=== PATIENT | male | born 1955 | race Caucasian/White ===

== ENCOUNTER 2017-12-03 06:37 | Inpatient (IN) | payer MEDICARE, MEDICAID ==
[2017-12-03 08:14] LABS: INR 1.66 (0.5-1.4); PROTHROMBIN TIME (TEST) 17.8 SECONDS (9.5-11.5)
[2017-12-03 08:18] LABS: ALB/GLOB RATIO 0.7 (1.0-1.8); ALBUMIN 2.8 gm/dL (4.2-5.5); ALKALINE PHOSPHATASE 117 U/L (34-104); ANION GAP 15.6 (7.0-16.0); BILIRUBIN,TOTAL 8.7 mg/dL (0.3-1.0); BUN - UREA NITROGEN 18 mg/dL (7-25); CALCIUM SERUM 8.7 mg/dL (8.6-10.3); CHLORIDE 105 mEq/L (98-107); CHOLESTEROL 46 mg/dL (<200); CREATININE - SERUM 1.3 mg/dL (0.7-1.3); CREATININE KINASE 1584 U/L (30-223); GFR AFRICAN-AMERICAN > 60.0 ml/min (>90); GFR NON AFRICAN-AMERICAN 59.3 ml/min; GLUCOSE 167 mg/dL (70-105); HDL -HIGH DENSITY LIPOPROTEIN 24 mg/dL (23-92); POTASSIUM SERUM 3.6 mEq/L (3.5-5.1); SGOT 109 U/L (13-39); SGPT/ALT 38 U/L (7-52); SODIUM SERUM 136 mEq/L (136-145); TOTAL PROTEIN,SERUM 6.9 gm/dL (6.0-8.3); TRIGLYCERIDES 44 mg/dL (<150)
--- NOTE | 2017-12-03 08:27 | Diagnostic Imaging Report ---
CHEST X-RAY: AP view INDICATION: pain COMPARISON: None FINDINGS: Increased interstitial lung markings are noted. No focal consolidation or effusions. Heart size is normal. No evidence of pneumothorax. The osseous structures are intact. IMPRESSION: Increased initial lung markings, nonspecific. No focal consolidation identified.
[2017-12-03 08:29] LABS: HEMATOCRIT 35.8 % (41.0-60); HEMOGLOBIN 12.6 gm/dL (12-16); MEAN CELL VOLUME 99.1 fl (80-99); MEAN CORPUSCULAR HEMOGLOBIN 34.8 pg (26.0-30.0); MEAN CORPUSCULAR HGB CONC 35.1 pg (28.0-36.0); MEAN PLATELET VOLUME 8.3 fl; PLATELET COUNT 54 Th/cmm (150-400); RED BLOOD COUNT 3.62 Mil/cmm (4.30-5.70); RED CELL DISTRIBUTION WIDTH 14.6 % (11.5-20.0); WHITE BLOOD COUNT 10.3 Th/cmm (4.8-10.8)
[2017-12-03 08:32] LABS: MANUAL DIFF REQUIRED? YES
[2017-12-03 09:01] LABS: BAND NEUTROPHILE 3 % (0-10); BASOPHIL 0 % (0-3); EOSINOPHIL 0 % (0-5); LYMPHOCYTE 6 % (20-50); MONOCYTE 4 % (2-10); NEUTROPHILS 87 % (40-80); PLATELET ESTIMATE DECREASED PLATELETS (NORMAL); TOTAL CELLS COUNTED 100
--- NOTE | 2017-12-03 09:12 | ED Physician Chart ---
ED Chief Complaint/HPI - Patient Information Date Seen:: 12/03/17 Time Seen:: 06:45 Chief Complaint:: Fall History of Present Illness:: onset x 3 hours of syncope resulting in a fall resulting in head injury with back pain; pt denies H/As, S/T, neck pain, C/P, SOB, Abd. Pain, A/N/V/D/C, fever , chills, bleeding, or urinary s/s; pt's last tetanus shot: > 5 years Allergies:: Allergies Allergy/AdvReac Type Severity Reaction Status Date / Time No Known Allergies Allergy Verified 12/03/17 06:45 Vitals:: Vital Signs - 8 hr 12/03/17 12/03/17 12/03/17 06:40 07:16 08:46 Temp 98.1 F 98.1 F HR 108 102 99 RR 18 17 16 BP 125/58 125/59 121/58 O2 Sat % 94 93 94 Historian:: Patient, EMS Review:: Nurse's Note Reviewed, Old Chart Reviewed, EMS run form Reviewed ED Review of Systems - Review of Systems General/Constitutional: No fever, No chills, No weight loss, No weakness, No diaphoresis, No edema, No loss of appetite Skin: No skin lesions, No rash, No bruising Head: No headache, No light-headedness Eyes: No loss of vision, No pain, No diplopia ENT: No earache, No nasal drainage, No sore throat, No tinnitus Neck: No neck pain, No swelling, No thyromegaly, No stiffness, No mass noted Cardio Vascular: No chest pain, No palpitations, No PND, No orthopnea, No edema Pulmonary: No SOB, No cough, No sputum, No wheezing GI: No nausea, No vomiting, No diarrhea, No pain, No melena, No hematochezia, No constipation, No hematemesis G/U: No dysuria, No frequency, No hematuria, No nacturia Musculoskeletal: No bone or joint pain, No back pain, No muscle pain Endocrine: No polyuria, No polydipsia Psychiatric: Prior psych history, No depression, No anxiety, No suicidal ideation, No homicidal ideation, Auditory hallucination, No visual hallucination Hematopoietic: No bruising, No lymphadenopathy Allergic/Immuno: No urticaria, No angioedema Neurological: Syncope, No focal symptoms, No weakness, No paresthesia, No headache, No seizure, No dizziness, No confusion, No vertigo ED Past Medical History - Past Medical History Obtainable: Yes Past Medical History: HTN Family History: HTN Social History: Non Smoker, No Alcohol, No Drug Use, Single Surgical History: None Psychiatricy History: Schizophrenia Medication: Reviewed Family Medical History - Family Member Mother History Unknown: Yes ED Physical Exam - Physical Examination General/Constitutional: Awake, Well-developed, well-nourished, Alert, No distress, GCS 15, Non-toxic appearing, Ambulatory Other Head comments:: Left Frontal scalp Contusion and Abrasion; no FBs; good NV functions Eyes: Lids, conjuctiva normal, PERRL, EOMI Skin: Nl inspection, No rash, No skin lesions, No ecchymosis, Well hydrated, No lymphadenopathy ENMT: External ears, nose nl, Nasal exam nl, Lips, teeth, gums nl Neck: Nontender, Full ROM w/o pain, No JVD, No nuchal rigidity, No bruit, No mass, No stridor Other Neck comments:: supple; no meningeal signs; no cervical tenderness; no bruits Respiratory: Nl effort/Exclusion, Clear to Auscultation, No Wheeze/Rhonchi/Rales Cardio Vascular: RRR, No murmur, gallop, rubs, NL S1 S2, Carotid/Femoral/Distal pulses equal bilaterally GI: No tenderness/rebounding/guarding, No organomegaly, No hernia, Normal BS's, Nondistended, No mass/bruits, No McBurney tenderness, Rectum exam nl Other GI comments:: no pulsatile masses : No CVA tenderness Extremities: No tenderness or effusion, Full ROM, normal strength in all extremities, No edema, Normal digits & nails Neuro/Psych: Alert/oriented, DTR's symmetric, Normal sensory exam, Normal motor strength, Judgement/insight normal, Mood normal, Normal gait, No focal deficits Other Neuro/Psych comments:: no focal signs Misc: Normal back, No paraspinal tenderness ED Labs/Radiology/EKG Results - Lab Results Results: Laboratory Tests 12/03/17 12/03/17 12/03/17 07:52 07:52 07:52 WBC 10.3 RBC 3.62 L Hgb 12.6 Hct 35.8 L MCV 99.1 H MCH 34.8 H MCHC Differential 35.1 RDW 14.6 Plt Count 54 L MPV 8.3 Band Neutrophils % 3 Neutrophils (Manual) 87 H Lymphocytes 6 L Monocytes 4 Eosinophils 0 Basophils 0 Platelet Estimate DECREASED PLATELETS PT 17.8 H INR 1.66 H Sodium 136 Potassium 3.6 Chloride 105 Carbon Dioxide 19.0 L Anion Gap 15.6 BUN 18 Creatinine 1.3 Est GFR ( Amer) > 60.0 Est GFR (Non-Af Amer) 59.3 BUN/Creatinine Ratio 13.8 Glucose 167 H Calcium 8.7 Total Bilirubin 8.7 H AST 109 H ALT 38 Alkaline Phosphatase 117 H Creatine Kinase 1584 H CK-MB (CK-2) 13.6 H Troponin I B-Natriuretic Peptide Total Protein 6.9 Albumin 2.8 L Globulin 4.1 Albumin/Globulin Ratio 0.7 L Triglycerides 44 Cholesterol 46 LDL Cholesterol Direct 15 L HDL Cholesterol 24 12/03/17 12/03/17 07:52 07:52 WBC RBC Hgb Hct MCV MCH MCHC Differential RDW Plt Count MPV Band Neutrophils % Neutrophils (Manual) Lymphocytes Monocytes Eosinophils Basophils Platelet Estimate PT INR Sodium Potassium Chloride Carbon Dioxide Anion Gap BUN Creatinine Est GFR ( Amer) Est GFR (Non-Af Amer) BUN/Creatinine Ratio Glucose Calcium Total Bilirubin AST ALT Alkaline Phosphatase Creatine Kinase CK-MB (CK-2) Troponin I 0.06 H B-Natriuretic Peptide 22.4 Total Protein Albumin Globulin Albumin/Globulin Ratio Triglycerides Cholesterol LDL Cholesterol Direct HDL Cholesterol Comments:: decreased Platelets - Radiology Results Comments:: NAD - EKG Interpretations EKG Time:: 07:53 Rate & Rhythm: 103; ST Comments:: non-specific st-t changes ED Septic Shock - . Is Septic Shock (SBP<90, OR Lactate>4 mmol\L) present?: No - <6hrs of presentation: Vital Signs: Vital Signs - 8 hr 12/03/17 12/03/17 12/03/17 06:40 07:16 08:46 Temp 98.1 F 98.1 F HR 108 102 99 RR 18 17 16 BP 125/58 125/59 121/58 O2 Sat % 94 93 94 ED Reassessment (Disposition) - Reassessment Reassessment Condition:: Improved - Diagnosis Diagnosis:: Head Injury; Syncope; S/P Fall; Back Pain; Scalp Contusion and Abrasion; TIA; Cardiac Arrythmias - Aftercare/Follow up Instructions Aftercare/Follow-Up Instructions:: Counseled pt regarding lab results/diagnosis & need follow up, Counseled pt & family regarding lab results/diagnosis & need follow up - Patient Disposition Discharge/Transfer:: Acute Care w/in this hosp Accepting Physician:: Dr. Guido Time Called:: 829 Time Responded:: 08:30 Admitted to:: Telemetry Spoke to:: Dr. Guido Admitting Medical Physician:: Dr. Guido Condition at Disposition:: Stable, Improved
--- NOTE | 2017-12-03 09:28 | Diagnostic Imaging Report ---
Head CT without intravenous contrast Indication: Trauma Comparison: None Technique: Axial images were obtained from the vertex to the skull base without IV contrast. Coronal reconstructions were made. Total DLP: 697, CTDI34 FINDINGS: Images of the brain obtained without contrast demonstrate no acute hemorrhage. No mass lesions identified. The ventricles and basal cisterns are patent. The boyer-white matter differentiation is preserved. There is no mass effect or midline shift. No skull fractures identified. No soft tissue swelling. The paranasal sinuses are clear. IMPRESSION: No acute intracranial abnormality.
--- NOTE | 2017-12-03 09:33 | Diagnostic Imaging Report ---
CT cervical spine without IV contrast HISTORY: Trauma COMPARISON: None Technique: Axial images were obtained from the skull base to the upper thoracic spine without IV contrast. Multiplanar reconstructions were made. Total DLP: 772, CTDI34 FINDINGS: Images of the cervical spine obtained without contrast demonstrate no evidence of acute fracture or subluxation. Spinal scoliosis is noted. Advanced multilevel degenerative changes are seen with multilevel disc space loss of height extending from C4 through C7 with bridging osseous fusion and large posterior disc osteophyte spurs this is largest at the C5/C6 on the left side measuring up to 6-7 mm causing severe left-sided spinal canal and severe left neural foraminal narrowing. Additional 6 to 7 mm asymmetric leftward posterior disc osteophyte complex is seen at C6/C7 causing severe left-sided spinal canal severe left neural foraminal narrowing. An additional smaller disc osteophyte complexes are also noted. Multilevel facet degenerative changes are seen most pronounced on the at C2/C3 on the left side causing moderate to severe left neural foraminal narrowing at this level. Degenerative change of the atlantodental articulation is noted. No prevertebral soft tissue swelling. The lung apices are clear. IMPRESSION: No evidence of acute fracture or subluxation. Moderate to severe multilevel degenerative changes as detailed above. Spinal scoliosis.
--- NOTE | 2017-12-03 09:38 | Diagnostic Imaging Report ---
CT lumbar spine without IV contrast HISTORY: Trauma COMPARISON: None Technique: Axial images were obtained from the lower thoracic spine to the upper sacrum without IV contrast. Reconstructions were made. total DLP: 1289, CTDI46 Findings: Images of the lumbar spine obtained without contrast demonstrate no evidence of an acute fracture or subluxation. Multilevel moderate to advanced degenerative changes are seen with multilevel marginal ossific spurring greatest anteriorly. 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 The visualized retroperitoneum demonstrates a possible horseshoe kidney. The SI joints are preserved. IMPRESSION: No evidence of an acute fracture or subluxation. Degenerative changes. 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 CT abdomen pelvis or ultrasound abdomen may be obtained for further assessment if warranted
[2017-12-03 10:55] VITALS: BP 123/61
[2017-12-03] MEDS ORDERED: INSULIN ASPART SLIDING SCALE 100 UNITS/ML UNIT SUBQ SCH (18:30)
[2017-12-03] MEDS: Sodium Chloride 0.9% 1,000 ML IV SCH (20:07)
[2017-12-03] MEDS: INSULIN ASPART SLIDING SCALE 100 UNITS/ML UNIT SUBQ SCH (21:00)
[2017-12-04 06:31] LABS: % BASOPHILS 0.7 % (0.0-2.0); % EOSINOPHILS 2.6 % (0.0-5.0); % MONOCYTES 10.6 % (2.0-10.0); % NEUTROPHILS 76.1 % (40.0-80.0); EOSINOPHILE ABSOLUTE 0.2 Th/cmm (0.1-0.4); HEMATOCRIT 35.7 % (41.0-60); HEMOGLOBIN 12.3 gm/dL (12-16); LYMPHOCYTE ABSOLUTE 0.7 Th/cmm (1.5-3.0); MEAN CELL VOLUME 99.5 fl (80-99); MEAN CORPUSCULAR HEMOGLOBIN 34.4 pg (26.0-30.0); MEAN CORPUSCULAR HGB CONC 34.6 pg (28.0-36.0); MEAN PLATELET VOLUME 8.2 fl; MONOCYTE ABSOLUTE 0.7 Th/cmm (0.3-1.0); NEUTROPHILE ABSOLUTE 5.2 Th/cmm (1.8-8.0); PLATELET COUNT 46 Th/cmm (150-400); RED BLOOD COUNT 3.58 Mil/cmm (4.30-5.70); RED CELL DISTRIBUTION WIDTH 14.8 % (11.5-20.0); WHITE BLOOD COUNT 6.8 Th/cmm (4.8-10.8)
[2017-12-04 06:38] LABS: ANION GAP 9.1 (7.0-16.0); BUN - UREA NITROGEN 17 mg/dL (7-25); CALCIUM SERUM 8.4 mg/dL (8.6-10.3); CARBON DIOXIDE 22.1 mEq/L (21.0-31.0); CHLORIDE 101 mEq/L (98-107); CREATININE - SERUM 0.9 mg/dL (0.7-1.3); GFR AFRICAN-AMERICAN > 60.0 ml/min (>90); GFR NON AFRICAN-AMERICAN > 60.0 ml/min; GLUCOSE 112 mg/dL (70-105); POTASSIUM SERUM 3.2 mEq/L (3.5-5.1); SODIUM SERUM 129 mEq/L (136-145)
[2017-12-04] MEDS: INSULIN ASPART SLIDING SCALE 100 UNITS/ML UNIT SUBQ SCH ×4 (06:38→21:16)
[2017-12-04] MEDS: Potassium Chloride 20 mEq ER Tab PO SCH (09:10)
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
--- NOTE | 2017-12-04 16:31 | Cardiology ---
12/03/[address] Guido. PROCEDURE: Echocardiogram. M-MODE ECHOCARDIOGRAM: Mitral valve, anterior leaflet of mitral valve shows normal excursion, EF velocity. Posterior leaflet of mitral valve shows normal excursion. Left ventricular posterior wall shows increased thickness, normal excursion. Interventricular septum shows increased thickness, normal excursion, hypertrophy of the left ventricle, ejection fraction 77%. Left atrium enlarged 4.2 cm. Aortic root shows normal dimension, normal excursion of aortic leaflets. CONCLUSION: Hypertrophy of the left ventricle, ejection fraction 77%, left atrial enlargement. 2D ECHO: Long axis view showed normal sized left ventricle with hypertrophy of the left ventricle. Left atrium enlarged. Aortic root shows normal dimension, normal excursion of aortic leaflets. Short axis view of mitral valve normal. Short axis view of aortic valve normal. Apical four chamber view showed normal sized left ventricle with hypertrophy of the left ventricle. Left atrium enlarged. Right ventricular cavity, right atrium normal, no pericardial effusion. CONCLUSION: Hypertrophy of the left ventricle. Left atrial enlargement, ejection fraction 77%. Doppler study shows mild mitral regurgitation, tricuspid regurgitation, pulmonary regurgitation, right ventricular systolic pressure 46 mmHg with mild pulmonary hypertension. JOB# [id number]
[2017-12-05] MEDS: Sodium Chloride 0.9% 1,000 ML IV SCH (04:09)
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
[2017-12-05] MEDS: INSULIN ASPART SLIDING SCALE 100 UNITS/ML UNIT SUBQ SCH ×4 (06:30→21:30)
--- NOTE | 2017-12-05 09:16 | General Progress Note ---
Subjective - Review of Systems Service Date: 12/05/17 Subjective: I want go home Objective - Results Result Diagrams: 12/04/17 05:45 12/04/17 05:45 Recent Labs: Laboratory Last Values WBC 6.8 Th/cmm (4.8-10.8) 12/04/17 05:45 RBC 3.58 Mil/cmm (4.30-5.70) L 12/04/17 05:45 Hgb 12.3 gm/dL (12-16) 12/04/17 05:45 Hct 35.7 % (41.0-60) L 12/04/17 05:45 MCV 99.5 fl (80-99) H 12/04/17 05:45 MCH 34.4 pg (26.0-30.0) H 12/04/17 05:45 MCHC Differential 34.6 pg (28.0-36.0) 12/04/17 05:45 RDW 14.8 % (11.5-20.0) 12/04/17 05:45 Plt Count 46 Th/cmm (150-400) L 12/04/17 05:45 MPV 8.2 fl 12/04/17 05:45 Neutrophils % 76.1 % (40.0-80.0) 12/04/17 05:45 Band Neutrophils % 3 % (0-10) 12/03/17 07:52 Lymphocytes % 10.0 % (20.0-50.0) L 12/04/17 05:45 Monocytes % 10.6 % (2.0-10.0) H 12/04/17 05:45 Eosinophils % 2.6 % (0.0-5.0) 12/04/17 05:45 Basophils % 0.7 % (0.0-2.0) 12/04/17 05:45 Neutrophils (Manual) 87 % (40-80) H 12/03/17 07:52 Lymphocytes 6 % (20-50) L 12/03/17 07:52 Monocytes 4 % (2-10) 12/03/17 07:52 Eosinophils 0 % (0-5) 12/03/17 07:52 Basophils 0 % (0-3) 12/03/17 07:52 Platelet Estimate DECREASED PLATELETS (NORMAL) 12/03/17 07:52 PT 17.8 SECONDS (9.5-11.5) H 12/03/17 07:52 INR 1.66 (0.5-1.4) H 12/03/17 07:52 Sodium 129 mEq/L (136-145) L 12/04/17 05:45 Potassium 3.2 mEq/L (3.5-5.1) L 12/04/17 05:45 Chloride 101 mEq/L (98-107) 12/04/17 05:45 Carbon Dioxide 22.1 mEq/L (21.0-31.0) 12/04/17 05:45 Anion Gap 9.1 (7.0-16.0) 12/04/17 05:45 BUN 17 mg/dL (7-25) 12/04/17 05:45 Creatinine 0.9 mg/dL (0.7-1.3) 12/04/17 05:45 Est GFR ( Amer) > 60.0 ml/min (>90) 12/04/17 05:45 Est GFR (Non-Af Amer) > 60.0 ml/min 12/04/17 05:45 BUN/Creatinine Ratio 18.9 12/04/17 05:45 Glucose 112 mg/dL (70-105) H 12/04/17 05:45 POC Glucose 109 MG/DL (70 - 105) H 12/05/17 05:36 Calcium 8.4 mg/dL (8.6-10.3) L 12/04/17 05:45 Total Bilirubin 8.7 mg/dL (0.3-1.0) H 12/03/17 07:52 AST 109 U/L (13-39) H 12/03/17 07:52 ALT 38 U/L (7-52) 12/03/17 07:52 Alkaline Phosphatase 117 U/L (34-104) H 12/03/17 07:52 Creatine Kinase 4137 U/L (30-223) H 12/04/17 05:45 CK-MB (CK-2) 47.1 ng/mL (0.6-6.3) H 12/04/17 05:45 Troponin I 0.04 ng/mL (0.01-0.05) 12/04/17 05:45 B-Natriuretic Peptide 22.4 pg/mL (5.0-100.0) 12/03/17 07:52 Total Protein 6.9 gm/dL (6.0-8.3) 12/03/17 07:52 Albumin 2.8 gm/dL (4.2-5.5) L 12/03/17 07:52 Globulin 4.1 gm/dL 12/03/17 07:52 Albumin/Globulin Ratio 0.7 (1.0-1.8) L 12/03/17 07:52 Triglycerides 44 mg/dL (<150) 12/03/17 07:52 Cholesterol 46 mg/dL (<200) 12/03/17 07:52 LDL Cholesterol Direct 15 mg/dL (75-193) L 12/03/17 07:52 HDL Cholesterol 24 mg/dL (23-92) 12/03/17 07:52 - Physical Exam Vitals and I&O: Vital Signs Temp 98.7 F 12/05/17 07:53 Pulse 90 12/05/17 07:53 Resp 19 12/05/17 07:53 BP 125/51 12/05/17 07:53 Pulse Ox 99 12/05/17 07:53 Intake & Output 12/04/17 12/05/17 12/05/17 18:59 06:59 18:59 Intake Total 1600 1200 Balance 1600 1200 Weight (lbs) 127.006 kg 130.181 kg Intake: Intake, IV Amount 1000 Sodium Chloride 0.9% 1, 1000 000 ml @ 50 mls/hr IV . Q20H [facility] Rx#:[id number] Oral 600 1200 Other: # Voids 4 5 # Bowel Movements 0 Weight Source Bedscale Bedscale Active Medications: Current Medications Aspirin (Aspirin) 325 mg PO DAILY [facility] Stop: 02/02/18 08:59 Last Admin: 12/04/17 09:10 Dose: 325 mg Benztropine Mesylate (Cogentin) 1 mg PO DAILY [facility] Stop: 02/03/18 09:14 Sodium Chloride (Nacl 0.9%) 1,000 mls @ 50 mls/hr IV .Q20H [facility] Stop: 02/01/18 18:29 Last Admin: 12/05/17 04:09 Dose: 50 mls/hr Insulin Aspart (Novolog Insulin Sliding Scale) 0 units SUBQ ACHS JULIUS; Protocol Stop: 02/01/18 20:59 Last Admin: 12/05/17 06:30 Dose: Not Given Ketorolac Tromethamine (Toradol) 30 mg IVP Q6H PRN PRN Reason: Pain (Moderate) Stop: 12/08/17 10:44 Last Admin: 12/04/17 17:17 Dose: 30 mg Metformin HCl (Glucophage) 500 mg PO DAILY [facility] Stop: 02/02/18 08:59 Last Admin: 12/04/17 09:10 Dose: 500 mg Miscellaneous (Lurasidone Hcl [Latuda]) 40 mg PO HS [facility] Stop: 02/03/18 20:59 Miscellaneous (Nortriptyline Hcl [Nortriptyline Hcl*]) 50 mg PO HS [facility] Stop: 02/03/18 20:59 Potassium Chloride (Klor-Con) 20 meq PO DAILY [facility] Stop: 02/02/18 08:59 Last Admin: 12/04/17 09:10 Dose: 20 meq General: Alert, No acute distress, Other (Confused) HEENT: PERRLA, Other (scoriation in front head.) Neck: Supple Cardiovascular: Regular rate Abdomen: Bowel sounds, Soft Extremities: Other (No edema) Neurological: Normal gait Skin: Other (Warm and dry) Psych/Mental Status: Other (Confused) Assessment/Plan - Assessment Assessment: Head CT and X-ray were WNL, Abrasion in head. Dx: syncope, head trauma, schizophrenia, obesity - Plan Plan: Patient in pain control, continue with home meds. Already seen by Cardiology, awaiting Psychiatry eval. Will continue to monitor.
[2017-12-05 09:29] LABS: % EOSINOPHILS 3.3 % (0.0-5.0); % LYMPHOCYTES 12.4 % (20.0-50.0); % MONOCYTES 11.3 % (2.0-10.0); EOSINOPHILE ABSOLUTE 0.1 Th/cmm (0.1-0.4); HEMATOCRIT 35.3 % (41.0-60); HEMOGLOBIN 12.2 gm/dL (12-16); LYMPHOCYTE ABSOLUTE 0.4 Th/cmm (1.5-3.0); MEAN CELL VOLUME 99.1 fl (80-99); MEAN CORPUSCULAR HEMOGLOBIN 34.3 pg (26.0-30.0); MEAN CORPUSCULAR HGB CONC 34.6 pg (28.0-36.0); MEAN PLATELET VOLUME 8.6 fl; MONOCYTE ABSOLUTE 0.4 Th/cmm (0.3-1.0); NEUTROPHILE ABSOLUTE 2.6 Th/cmm (1.8-8.0); PLATELET COUNT 69 Th/cmm (150-400); RED BLOOD COUNT 3.57 Mil/cmm (4.30-5.70); RED CELL DISTRIBUTION WIDTH 14.5 % (11.5-20.0)
[2017-12-05] MEDS ORDERED: Potassium Chloride 20 mEq ER Tab PO ONE (09:30)
[2017-12-05 09:33] LABS: ALB/GLOB RATIO 0.7 (1.0-1.8); ALBUMIN 2.6 gm/dL (4.2-5.5); ALKALINE PHOSPHATASE 123 U/L (34-104); ANION GAP 10.9 (7.0-16.0); BILIRUBIN,TOTAL 6.6 mg/dL (0.3-1.0); BUN - UREA NITROGEN 13 mg/dL (7-25); CALCIUM SERUM 8.3 mg/dL (8.6-10.3); CARBON DIOXIDE 20.9 mEq/L (21.0-31.0); CHLORIDE 99 mEq/L (98-107); CREATININE - SERUM 0.8 mg/dL (0.7-1.3); GFR AFRICAN-AMERICAN > 60.0 ml/min (>90); GFR NON AFRICAN-AMERICAN > 60.0 ml/min; GLUCOSE 175 mg/dL (70-105); POTASSIUM SERUM 3.8 mEq/L (3.5-5.1); SGOT 366 U/L (13-39); SGPT/ALT 73 U/L (7-52); SODIUM SERUM 127 mEq/L (136-145); TOTAL PROTEIN,SERUM 6.6 gm/dL (6.0-8.3)
[2017-12-05 09:38] LABS: WHITE BLOOD COUNT 3.5 Th/cmm (4.8-10.8)
[2017-12-05] MEDS: Potassium Chloride 20 mEq ER Tab PO SCH (10:35)
[2017-12-05] MEDS: Benztropine 1 MG TAB PO SCH (10:35)
[2017-12-05] MEDS ORDERED: NORTRIPTYLINE HCL 50 MG PO SCH (21:00)
[2017-12-05] MEDS ORDERED: Non-Formulary Item 1 EA (Lurasidone Hcl [Latuda] 40 MG) PO SCH (21:00)
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
[2017-12-06] MEDS: INSULIN ASPART SLIDING SCALE 100 UNITS/ML UNIT SUBQ SCH (06:30)
[2017-12-06 06:35] LABS: EOSINOPHILE ABSOLUTE 0.1 Th/cmm (0.1-0.4); HEMATOCRIT 32.3 % (41.0-60); HEMOGLOBIN 11.7 gm/dL (12-16); LYMPHOCYTE ABSOLUTE 0.7 Th/cmm (1.5-3.0); MEAN CELL VOLUME 98.2 fl (80-99); MEAN CORPUSCULAR HEMOGLOBIN 35.5 pg (26.0-30.0); MEAN CORPUSCULAR HGB CONC 36.1 pg (28.0-36.0); MEAN PLATELET VOLUME 7.9 fl; MONOCYTE ABSOLUTE 0.7 Th/cmm (0.3-1.0); NEUTROPHILE ABSOLUTE 2.7 Th/cmm (1.8-8.0); PLATELET COUNT 51 Th/cmm (150-400); RED BLOOD COUNT 3.29 Mil/cmm (4.30-5.70); RED CELL DISTRIBUTION WIDTH 15.2 % (11.5-20.0); WHITE BLOOD COUNT 4.2 Th/cmm (4.8-10.8)
[2017-12-06 06:40] LABS: % BASOPHILS 0.2 % (0.0-2.0); % EOSINOPHILS 2.7 % (0.0-5.0); % LYMPHOCYTES 17.6 % (20.0-50.0); % MONOCYTES 17.7 % (2.0-10.0); % NEUTROPHILS 61.8 % (40.0-80.0)
[2017-12-06 06:44] LABS: ALB/GLOB RATIO 0.6 (1.0-1.8); ALBUMIN 2.4 gm/dL (4.2-5.5); ALKALINE PHOSPHATASE 122 U/L (34-104); ANION GAP 7.6 (7.0-16.0); BILIRUBIN,TOTAL 5.9 mg/dL (0.3-1.0); BUN - UREA NITROGEN 10 mg/dL (7-25); CALCIUM SERUM 8.2 mg/dL (8.6-10.3); CARBON DIOXIDE 23.2 mEq/L (21.0-31.0); CHLORIDE 106 mEq/L (98-107); CREATININE - SERUM 0.7 mg/dL (0.7-1.3); GFR AFRICAN-AMERICAN > 60.0 ml/min (>90); GFR NON AFRICAN-AMERICAN > 60.0 ml/min; POTASSIUM SERUM 3.8 mEq/L (3.5-5.1); SGOT 335 U/L (13-39); SGPT/ALT 81 U/L (7-52); SODIUM SERUM 133 mEq/L (136-145); TOTAL PROTEIN,SERUM 6.3 gm/dL (6.0-8.3)
[2017-12-06 08:19] LABS: GLUCOSE 101 mg/dL (70-105)
--- NOTE | 2017-12-06 08:51 | Discharge Summary ---
General Discharge Summary - Discharge Summary Date of Admission: 12/03/17 Admitting Diagnosis: Syncope, Head trauma, Schizophrenia Discharge Date: 12/06/17 Discharge Diagnosis: Syncope, Head trauma, Schizophrenia. Laboratory Findings: Laboratory Results - last 24 hr 12/05/17 12/05/17 12/05/17 08:56 08:56 08:56 WBC 3.5 L RBC 3.57 L Hgb 12.2 Hct 35.3 L MCV 99.1 H MCH 34.3 H MCHC Differential 34.6 RDW 14.5 Plt Count 69 L MPV 8.6 Neutrophils % 72.0 Lymphocytes % 12.4 L Monocytes % 11.3 H Eosinophils % 3.3 Basophils % 1.0 Sodium 127 L Potassium 3.8 Chloride 99 Carbon Dioxide 20.9 L Anion Gap 10.9 BUN 13 Creatinine 0.8 Est GFR ( Amer) > 60.0 Est GFR (Non-Af Amer) > 60.0 BUN/Creatinine Ratio 16.3 Glucose 175 H POC Glucose Calcium 8.3 L Total Bilirubin 6.6 H AST 366 H ALT 73 H Alkaline Phosphatase 123 H Troponin I 0.03 Total Protein 6.6 Albumin 2.6 L Globulin 4.0 Albumin/Globulin Ratio 0.7 L 12/05/17 12/05/17 12/05/17 12:03 16:50 21:08 WBC RBC Hgb Hct MCV MCH MCHC Differential RDW Plt Count MPV Neutrophils % Lymphocytes % Monocytes % Eosinophils % Basophils % Sodium Potassium Chloride Carbon Dioxide Anion Gap BUN Creatinine Est GFR ( Amer) Est GFR (Non-Af Amer) BUN/Creatinine Ratio Glucose POC Glucose 155 H 136 H 169 H Calcium Total Bilirubin AST ALT Alkaline Phosphatase Troponin I Total Protein Albumin Globulin Albumin/Globulin Ratio 12/06/17 12/06/17 12/06/17 06:00 06:00 06:28 WBC 4.2 L RBC 3.29 L Hgb 11.7 L Hct 32.3 L MCV 98.2 MCH 35.5 H MCHC Differential 36.1 H RDW 15.2 Plt Count 51 L MPV 7.9 Neutrophils % 61.8 Lymphocytes % 17.6 L Monocytes % 17.7 H Eosinophils % 2.7 Basophils % 0.2 Sodium 133 L Potassium 3.8 Chloride 106 Carbon Dioxide 23.2 Anion Gap 7.6 BUN 10 Creatinine 0.7 Est GFR ( Amer) > 60.0 Est GFR (Non-Af Amer) > 60.0 BUN/Creatinine Ratio 14.3 Glucose 101 POC Glucose 96 Calcium 8.2 L Total Bilirubin 5.9 H AST 335 H ALT 81 H Alkaline Phosphatase 122 H Troponin I Total Protein 6.3 Albumin 2.4 L Globulin 3.9 Albumin/Globulin Ratio 0.6 L Hospital Course: Patient was hospitalized, and he respondede to treatment, head CT was normal and patient had no more dizziness. Treatment: Patient received IV NS, continue with home meds, He was seen by Cardiology, and Psychiatry. Disposition: PT DISCHARGED HOME Home Medications: Home Medication Medication Instructions Recorded Type Lurasidone HCl [Latuda] 40 mg PO HS 12/03/17 History metFORMIN [Glucophage] 500 mg PO DAILY 12/03/17 History Benztropine [Cogentin*] 1 mg PO DAILY 12/05/17 History Nortriptyline HCl [Nortriptyline 50 mg PO HS 12/05/17 History HCL*] Aspirin 325 mg PO DAILY tab 12/06/17 Rx Nortriptyline [Pamelor] 50 mg PO HS cap 12/06/17 Rx Sodium Chloride Tab [NaCL Tab] 1 gm PO BID tab 12/06/17 Rx Inpatient Medications: Current Medications Aspirin (Aspirin) 325 mg PO DAILY [facility] Stop: 02/02/18 08:59 Last Admin: 12/05/17 10:34 Dose: 325 mg Benztropine Mesylate (Cogentin) 1 mg PO DAILY [facility] Stop: 02/03/18 09:14 Last Admin: 12/05/17 10:35 Dose: 1 mg Sodium Chloride (Nacl 0.9%) 1,000 mls @ 50 mls/hr IV .Q20H [facility] Stop: 02/01/18 18:29 Last Admin: 12/05/17 04:09 Dose: 50 mls/hr Insulin Aspart (Novolog Insulin Sliding Scale) 0 units SUBQ ACHS [facility]; Protocol Stop: 02/01/18 20:59 Last Admin: 12/06/17 06:30 Dose: Not Given Ketorolac Tromethamine (Toradol) 30 mg IVP Q6H PRN PRN Reason: Pain (Moderate) Stop: 12/08/17 10:44 Last Admin: 12/04/17 17:17 Dose: 30 mg Metformin HCl (Glucophage) 500 mg PO DAILY JULIUS Stop: 02/02/18 08:59 Last Admin: 12/05/17 10:34 Dose: 500 mg Miscellaneous (Lurasidone Hcl [Latuda]) 40 mg PO HS JULIUS Stop: 02/03/18 20:59 Nortriptyline HCl (Pamelor) 50 mg PO HS JULIUS Stop: 02/03/18 20:59 Last Admin: 12/05/17 21:03 Dose: 50 mg Potassium Chloride (Klor-Con) 20 meq PO DAILY JULIUS Stop: 02/02/18 08:59 Last Admin: 12/05/17 10:35 Dose: 20 meq Sodium Chloride (Nacl Tab) 1 gm PO BID JULIUS Stop: 02/03/18 19:59 Last Admin: 12/05/17 21:03 Dose: 1 gm Activity: As Tolerated Consults and Follow-Up: MARKUS SORIANO [Other] Laith Guido [Primary Care Provider] - Instructions: Confusion
[2017-12-06] MEDS: Benztropine 1 MG TAB PO SCH (09:39)
[2017-12-06] MEDS: Potassium Chloride 20 mEq ER Tab PO SCH (09:39)
== END 2017-12-06 11:20 | disposition home or self-care (01) | DRG 641 ==
LOC: ER 06:37 → TELE 09:15 → MSI 12-05 09:39
PROVIDERS: ADMIT General Practice; ATTEND General Practice
DX: E86.0 Dehydration (principal); F20.0 Paranoid schizophrenia; Z68.41 Body mass index [BMI] 40.0-44.9, adult; E44.1 Mild protein-calorie malnutrition; S00.01XA Abrasion of scalp, initial encounter; S00.91XA Abrasion of unspecified part of head, initial encounter; E66.9 Obesity, unspecified; W19.XXXA Unspecified fall, initial encounter; I11.9 Hypertensive heart disease without heart failure; I08.1 Rheumatic disorders of both mitral and tricuspid valves; I27.20 Pulmonary hypertension, unspecified; Y93.89 Activity, other specified; Y92.89 Other specified places as the place of occurrence of the external cause; Y99.8 Other external cause status; Z82.49 Family history of ischemic heart disease and other diseases of the circulatory system
CPT/HCPCS: 36415-UA; 70450-TC; 71045-TC; 72125-TC; 72131-TC; 80048-TC; 80053-TC; 80061-TC; 82550-TC; 82553; 82948-90; 83880-TC; 84484-TC; 85007-TC; 85025-TC; 85027-TC; 85610-TC; 93005; 94760; 96374; 97530; J1815; J1885; J7030; X3904; Z7610